=== PATIENT | female | born 1930 | race Caucasian/White ===

== ENCOUNTER 2018-05-29 20:57 | Emergency (ER) | payer MEDICARE ==
[~2018-05-29] VITALS: Ht 165.1 cm; Wt 59.1 kg
[~2018-05-29 20:57] MED LIST: AMLO5TAB PO; ASPI-611 PO; CRAN200C PO; DEXT15DR7 EACHEYE; DOCU-28 PO; DOCU250C4 PO; HYDR-4383 PO; IBUP-1985 PO; MULT-933 PO; [UNRECOGNIZED DRUG - OTHER] PO
[2018-05-29 21:07] VITALS: BP 151/79
--- NOTE | 2018-05-29 21:17 | NUR ---
Daughter, Heidy Hester reports she is pt's POA and wanted to leave her number in case of emergency
--- NOTE | 2018-05-29 21:27 | NUR ---
Endorsed to ERP patient assessment.
[2018-05-29 21:40] LABS: BASOPHILS # (AUTO) 0.1 X10'3 (0-0.2); BASOPHILS % (AUTO) 1.1 % (0-1); EOSINOPHILS # (AUTO) 0.1 X10'3 (0-0.9); EOSINOPHILS % (AUTO) 1.6 % (0-6); HEMATOCRIT 34.7 % (35.0-45.0); HEMOGLOBIN 11.8 g/dl (12.0-16.0); LYMPHOCYTES # (AUTO) 1.5 X10'3 (1.1-4.8); LYMPHOCYTES % (AUTO) 28.1 % (21-51); MEAN CORPUSCULAR HEMOGLOBIN 32.1 PG (27.0-31.0); MEAN CORPUSCULAR HGB CONC 34.1 g/dL (33.0-36.5); MEAN CORPUSCULAR VOLUME 94.2 FL (78-98); MEAN PLATELET VOLUME 6.9 FL (7.4-10.4); MONOCYTES # (AUTO) 0.6 X10'3 (0-0.9); MONOCYTES % (AUTO) 10.7 % (2-12); NEUTROPHILS # (AUTO) 3.1 X10'3 (1.8-7.7); NEUTROPHILS % (AUTO) 58.5 % (42-75); PLATELET COUNT 332 X10'3 (140-440); RED BLOOD COUNT 3.68 X10'6 (4.20-5.60); RED CELL DISTRIBUTION WIDTH 13.9 % (11.5-14.5); WHITE BLOOD COUNT 5.3 X10'3 (4.5-11.0)
--- NOTE | 2018-05-29 21:41 | NUR ---
PT DESCRIBES HER CHEST PAIN PRESSURE IN THE CHEST AND AT TIMES FELT LIKE IT WAS IN HER THROAT. DENIES LIGHTHEADEDNESS OR DIZZINESS
[2018-05-29 21:48] LABS: ALANINE AMINOTRANSFERASE 23 U/L (12-78); ALBUMIN 3.2 G/DL (3.4-5.0); ALBUMIN/GLOBULIN RATIO 1.3 (1.1-1.5); ALKALINE PHOSPHATASE 58 IU/L (46-116); ANION GAP 5 (8-16); ASPARTATE AMINO TRANSFERASE 17 U/L (10-37); BILIRUBIN,TOTAL 0.3 MG/DL (0.1-1.0); BLOOD UREA NITROGEN 26 MG/DL (7-18); BUN/CREATININE RATIO 27.4 (6.6-38.0); CALCIUM 8.8 MG/DL (8.5-10.1); CHLORIDE 107 MMOL/L (99-107); CREATININE 0.95 MG/DL (0.40-0.90); GLUCOSE 90 MG/DL (70-104); SODIUM 140 MMOL/L (135-145); TOTAL CARBON DIOXIDE 28.3 MMOL/L (24-32); TOTAL PROTEIN 5.7 G/DL (6.4-8.2); eGFR 56 ML/MIN
[2018-05-29 21:52] LABS: TROPONIN I 0.04 NG/ML (0.0-0.05)
--- NOTE | 2018-05-29 22:27 | NUR ---
Assisted to [facility], voided, kylah-care given, brief applied
== END 2018-05-29 23:52 | disposition home or self-care (01) ==
LOC: ER 20:58
DX: R07.89 Other chest pain (principal); I10 Essential (primary) hypertension; Z86.73 Personal history of transient ischemic attack (TIA), and cerebral infarction without residual deficits; Z90.49 Acquired absence of other specified parts of digestive tract; Z60.2 Problems related to living alone; Z79.82 Long term (current) use of aspirin; Z79.899 Other long term (current) drug therapy
CPT/HCPCS: 36415; 71045; 80053; 84484; 85025; 93005; 99284

== ENCOUNTER 2018-10-05 16:31 | Emergency (ER) | payer MEDICARE ==
[~2018-10-05] VITALS: Ht 170.2 cm; Wt 70.5 kg
[2018-10-05 18:28] VITALS: BP 174/83
--- NOTE | 2018-10-05 18:28 | NUR ---
up to bsc with assistance.
== END 2018-10-05 19:33 | disposition home or self-care (01) ==
LOC: ER 16:31
DX: S40.212A Abrasion of left shoulder, initial encounter (principal); S00.81XA Abrasion of other part of head, initial encounter; I10 Essential (primary) hypertension; Z86.73 Personal history of transient ischemic attack (TIA), and cerebral infarction without residual deficits; Z98.890 Other specified postprocedural states; Z88.2 Allergy status to sulfonamides; Z79.82 Long term (current) use of aspirin; Z79.899 Other long term (current) drug therapy; W18.49XA Other slipping, tripping and stumbling without falling, initial encounter; Y93.89 Activity, other specified; Y92.89 Other specified places as the place of occurrence of the external cause; Y99.9 Unspecified external cause status
CPT/HCPCS: 70450; 99284

== ENCOUNTER 2019-02-12 19:58 | Observation (INO) | payer MEDICARE ==
[~2019-02-12] VITALS: Ht 167.6 cm; Wt 59.0 kg
[~2019-02-12 19:58] MED LIST changes: +DOCU-329 PO; -DOCU250C4 PO
[2019-02-12 20:34] LABS: BASOPHILS % (AUTO) 0.7 % (0-1); EOSINOPHILS # (AUTO) 0.1 X10'3 (0-0.9); EOSINOPHILS % (AUTO) 1.8 % (0-6); HEMATOCRIT 36.7 % (35.0-45.0); HEMOGLOBIN 12.6 g/dl (12.0-16.0); LYMPHOCYTES # (AUTO) 1.3 X10'3 (1.1-4.8); LYMPHOCYTES % (AUTO) 25.5 % (21-51); MEAN CORPUSCULAR HEMOGLOBIN 32.9 PG (27.0-31.0); MEAN CORPUSCULAR HGB CONC 34.3 g/dL (33.0-36.5); MEAN CORPUSCULAR VOLUME 95.9 FL (78-98); MEAN PLATELET VOLUME 7.2 FL (7.4-10.4); MONOCYTES # (AUTO) 0.4 X10'3 (0-0.9); MONOCYTES % (AUTO) 8.4 % (2-12); NEUTROPHILS # (AUTO) 3.3 X10'3 (1.8-7.7); NEUTROPHILS % (AUTO) 63.6 % (42-75); PLATELET COUNT 336 X10'3 (140-440); RED BLOOD COUNT 3.83 X10'6 (4.20-5.60); RED CELL DISTRIBUTION WIDTH 14.3 % (11.5-14.5); WHITE BLOOD COUNT 5.2 X10'3 (4.5-11.0)
[2019-02-12 20:39] LABS: ALANINE AMINOTRANSFERASE 15 U/L (12-78); ALBUMIN 3.4 G/DL (3.4-5.0); ALBUMIN/GLOBULIN RATIO 1.1 (1.1-1.5); ALKALINE PHOSPHATASE 67 IU/L (46-116); ANION GAP 7 (8-16); ASPARTATE AMINO TRANSFERASE 19 U/L (10-37); BILIRUBIN,TOTAL 0.3 MG/DL (0.1-1.0); BLOOD UREA NITROGEN 21 MG/DL (7-18); BUN/CREATININE RATIO 18.6 (6.6-38.0); CALCIUM 8.5 MG/DL (8.5-10.1); CHLORIDE 105 MMOL/L (99-107); CREATININE 1.13 MG/DL (0.40-0.90); GLUCOSE 114 MG/DL (70-104); POTASSIUM 3.8 MMOL/L (3.5-5.1); SODIUM 139 MMOL/L (135-145); TOTAL CARBON DIOXIDE 27.3 MMOL/L (24-32); TOTAL PROTEIN 6.4 G/DL (6.4-8.2); eGFR 46 ML/MIN
[2019-02-12] MEDS ORDERED: LOSA25TA96 PO (20:56)
[2019-02-12] MEDS ORDERED: HYDR-4070 PO (20:56)
[2019-02-12] MEDS ORDERED: DONE5TAB7 PO (20:56)
[2019-02-12] MEDS ORDERED: FERR324T PO (20:56)
[2019-02-12] MEDS ORDERED: POTA10TA19 PO (20:56)
[2019-02-12] MEDS ORDERED: FURO-150 PO (20:56)
[2019-02-12] MEDS ORDERED: IBUP-1984 PO (20:56)
[2019-02-12] MEDS ORDERED: LACTC PO (21:00)
[2019-02-12] MEDS ORDERED: ondansetron/PF 4mg/2ml inj IV PRN ×2 (22:05→23:40)
[2019-02-12] MEDS ORDERED: acetaminophen 325mg tablet PO PRN ×2 (22:05→23:40)
[2019-02-12] MEDS ORDERED: magnesium hydroxide 30ml (MOM) UD suspension PO PRN ×2 (22:05→23:40)
[2019-02-12] MEDS ORDERED: nitroGLYCERIN 0.4mg SUBLingual tab SL PRN (22:05)
[2019-02-12] MEDS ORDERED: mag hydrox/Alum hydrox/simeth 30ml oral suspension PO PRN ×2 (22:05→23:40)
[2019-02-12] MEDS ORDERED: morphine 2 MG/ML inj. syringe IV PRN ×4 (22:05→23:40)
[2019-02-12] MEDS ORDERED: docusate sod 250mg capsule PO PRN (22:10)
--- NOTE | 2019-02-12 22:29 | NUR ---
NURSING HYDRODYNAMICIST AT BEDSIDE TO SPEAK WITH PATIENT. SHE IS WANTING TO LEAVE AMA BUT IS CONFUSED. SHE BELIEVES SHE HAS BEEN HERE "ALL DAY AND NIGHT" WHEN IN REALITY SHE HAS ONLY BEEN HERE A LITTLE OVER 2 HRS. SHE IS UPDATED ON PLAN OF CARE AND AGREES TO STAY AT THIS TIME. SHE IS CURRENTLY AWAITING A ROOM UPSTAIRS.
--- NOTE | 2019-02-12 22:45 | NUR ---
Patient in room ED 8. I have received report from JORI BLAKE IN THE ER and had the opportunity to ask questions and will assume patient care upon arrival to the floor. Addendum: 02/12/19 at 2309 by Nataliia Haynes RN Amended: Links added.
--- NOTE | 2019-02-12 22:55 | NUR ---
recieved pt from the Er on a gurney with a walker ambulated from the galicia to the bed with one person assist. vitals taken and MRSA swab done.
--- NOTE | 2019-02-12 23:00 | NUR ---
lab in to draw 3 hour troponin and then MRSA swab done and sent done with lab.
--- NOTE | 2019-02-12 23:29 | NUR ---
Dr Durant in with the pt at this time.
[2019-02-13] VITALS: BP 153/79
--- NOTE | 2019-02-13 00:35 | NUR ---
DARTING ON PT COMPLETED
--- NOTE | 2019-02-13 01:29 | NUR ---
AMBULATED PT WITH WALKER AND ASSIST TO [facility]. VOID AND TOLERATED WELL.
[2019-02-13] MEDS ORDERED: HYDROcodone/acetaminophen 5mg/325mg tablet PO PRN (02:00)
--- NOTE | 2019-02-13 02:21 | NUR ---
pt resting eyes closed without s&s of distress at this time.
--- NOTE | 2019-02-13 02:35 | NUR ---
troponin drawn and taken down to the lab to run.
--- NOTE | 2019-02-13 04:40 | NUR ---
pt up ambulated with walker and [employer] to BR[facility] at this time.
--- NOTE | 2019-02-13 06:12 | NUR ---
Problems reprioritized. Patient report given, questions answered & plan of care reviewed with Lily Zamora. Addendum: 02/13/19 at 0613 by Nataliia Haynes RN Amended: Links added.
--- NOTE | 2019-02-13 06:34 | NUR ---
Patient in room NEW 348. I have received report from Nataliia BLAKE and had the opportunity to ask questions and assume patient care.
[2019-02-13 07:00] VITALS: BP 180/80
[2019-02-13] MEDS ORDERED: lactobacillus rhamnosus 10,000 MMU CELLS/CAPSULE PO SCH (08:00)
[2019-02-13] MEDS ORDERED: hyDRALAzine 10mg tablet PO SCH (08:00)
[2019-02-13] MEDS ORDERED: losartan 25mg tablet PO SCH (08:00)
[2019-02-13] MEDS ORDERED: ibuprofen tablet 400 MG TABLET PO PRN (08:00)
[2019-02-13] MEDS ORDERED: non-formulary drug (Aspirin (Aspir 81) 1 TAB) PO SCH (08:00)
[2019-02-13] MEDS ORDERED: potassium Cl 20 mEq SR tablet PO SCH (08:00)
[2019-02-13] MEDS ORDERED: polyvinyl alcohol ophthalmic drops 15ml bottle EACHEYE SCH (08:00)
[2019-02-13] MEDS ORDERED: furosemide 20MG tablet PO SCH (08:00)
[2019-02-13] MEDS ORDERED: CRANBERRY EXTRACT 250 MG PO SCH (08:00)
[2019-02-13] MEDS ORDERED: aspirin 81mg tablet.DR PO SCH (08:00)
[2019-02-13] MEDS ORDERED: multivitamins, therapeutics tablet PO SCH (08:00)
[2019-02-13] MEDS ORDERED: ferrous gluconate 324mg tablet PO SCH (08:30)
[2019-02-13 09:30] VITALS: BP 152/72
--- NOTE | 2019-02-13 10:33 | NUR ---
Patient wanted to go home today syed, she expressed worry about going back immediately. Dr. Bernal notified about this. He said he would put an order in
--- NOTE | 2019-02-13 11:20 | NUR ---
Discharge instructions given to patient, patient verbalized understanding of all instructions made. Peripheral IV catheter removed, tip intact. Instructed patient to ensure she has all her belongings with her before leaving. Per Forensics Team Director Danielle, [employer] [employer] will fiber picker the patient for transportation to [facility] at around 12 noon.
[2019-02-13] MEDS ORDERED: donepezil 5mg tablet PO SCH (21:00)
== END 2019-02-13 11:55 ==
LOC: ER 19:59 → ED HOLD 22:03 → EDBEDREQ 22:34 → SUR 3N 23:16
PROVIDERS: ADMIT Internal Medicine; ATTEND Hospitalist
DX: R07.89 Other chest pain (principal); I24.9 Acute ischemic heart disease, unspecified; E78.00 Pure hypercholesterolemia, unspecified; E86.0 Dehydration; F03.90 Unspecified dementia, unspecified severity, without behavioral disturbance, psychotic disturbance, mood disturbance, and anxiety; I12.9 Hypertensive chronic kidney disease with stage 1 through stage 4 chronic kidney disease, or unspecified chronic kidney disease; N18.3 Chronic kidney disease, stage 3 (moderate); G89.29 Other chronic pain; Z86.73 Personal history of transient ischemic attack (TIA), and cerebral infarction without residual deficits; Z79.82 Long term (current) use of aspirin; Z79.899 Other long term (current) drug therapy; Z88.2 Allergy status to sulfonamides
CPT/HCPCS: 36415; 71045; 80053; 83880; 84484; 85025; 87081; 93005; 99284; G0378

== ENCOUNTER 2019-04-02 06:03 | Emergency (ER) | payer MEDICARE ==
[~2019-04-02] VITALS: Ht 167.6 cm; Wt 63.0 kg
[~2019-04-02 06:03] MED LIST changes: -AMLO5TAB PO; -DOCU-28 PO; +DONE5TAB7 PO; +FERR324T PO; +FURO-150 PO; +HYDR-4070 PO; +IBUP-1984 PO; -IBUP-1985 PO; +LACTC PO; +LOSA25TA96 PO; +POTA10TA19 PO
[2019-04-02 08:07] VITALS: BP 175/94
== END 2019-04-02 09:04 | disposition home or self-care (01) ==
LOC: ER 06:06
DX: G89.29 Other chronic pain (principal); M25.512 Pain in left shoulder; F03.90 Unspecified dementia, unspecified severity, without behavioral disturbance, psychotic disturbance, mood disturbance, and anxiety; E78.00 Pure hypercholesterolemia, unspecified; I10 Essential (primary) hypertension; Z86.73 Personal history of transient ischemic attack (TIA), and cerebral infarction without residual deficits; Z98.890 Other specified postprocedural states; Z88.2 Allergy status to sulfonamides; Z79.82 Long term (current) use of aspirin; Z79.899 Other long term (current) drug therapy
CPT/HCPCS: 73030; 99284

== ENCOUNTER 2019-04-16 20:49 | Emergency (ER) | payer MEDICARE ==
[~2019-04-16] VITALS: Ht 167.6 cm; Wt 61.0 kg
[2019-04-16 21:43] LABS: BASOPHILS # (AUTO) 0.1 X10'3 (0-0.2); EOSINOPHILS % (AUTO) 0.3 % (0-6); HEMATOCRIT 37.1 % (35.0-45.0); HEMOGLOBIN 12.9 g/dl (12.0-16.0); LYMPHOCYTES # (AUTO) 0.9 X10'3 (1.1-4.8); LYMPHOCYTES % (AUTO) 13.1 % (21-51); MEAN CORPUSCULAR HEMOGLOBIN 33.2 PG (27.0-31.0); MEAN CORPUSCULAR HGB CONC 34.6 g/dL (33.0-36.5); MEAN CORPUSCULAR VOLUME 95.7 FL (78-98); MEAN PLATELET VOLUME 7.3 FL (7.4-10.4); MONOCYTES # (AUTO) 0.5 X10'3 (0-0.9); MONOCYTES % (AUTO) 7.4 % (2-12); NEUTROPHILS # (AUTO) 5.5 X10'3 (1.8-7.7); NEUTROPHILS % (AUTO) 78.2 % (42-75); PLATELET COUNT 364 X10'3 (140-440); RED BLOOD COUNT 3.88 X10'6 (4.20-5.60); RED CELL DISTRIBUTION WIDTH 14.6 % (11.5-14.5); WHITE BLOOD COUNT 7.1 X10'3 (4.5-11.0)
[2019-04-16 21:50] LABS: ALANINE AMINOTRANSFERASE 27 U/L (12-78); ALBUMIN 3.6 G/DL (3.4-5.0); ALBUMIN/GLOBULIN RATIO 1.2 (1.1-1.5); ALKALINE PHOSPHATASE 64 IU/L (46-116); ANION GAP 4 (8-16); ASPARTATE AMINO TRANSFERASE 19 U/L (10-37); BILIRUBIN,TOTAL 0.2 MG/DL (0.1-1.0); BLOOD UREA NITROGEN 22 MG/DL (7-18); BUN/CREATININE RATIO 22.2 (6.6-38.0); CALCIUM 8.9 MG/DL (8.5-10.1); CHLORIDE 108 MMOL/L (99-107); CREATININE 0.99 MG/DL (0.40-0.90); GLUCOSE 110 MG/DL (70-104); POTASSIUM 4.3 MMOL/L (3.5-5.1); SODIUM 142 MMOL/L (135-145); TOTAL CARBON DIOXIDE 29.9 MMOL/L (24-32); TOTAL PROTEIN 6.5 G/DL (6.4-8.2); eGFR 53 ML/MIN
[2019-04-16 22:10] VITALS: BP 159/86
== END 2019-04-16 23:45 | disposition home or self-care (01) ==
LOC: ER 20:50
DX: R07.89 Other chest pain (principal); F03.90 Unspecified dementia, unspecified severity, without behavioral disturbance, psychotic disturbance, mood disturbance, and anxiety; E78.00 Pure hypercholesterolemia, unspecified; I10 Essential (primary) hypertension; Z98.890 Other specified postprocedural states; Z60.2 Problems related to living alone; Z86.73 Personal history of transient ischemic attack (TIA), and cerebral infarction without residual deficits; Z79.82 Long term (current) use of aspirin; Z79.899 Other long term (current) drug therapy
CPT/HCPCS: 36415; 71045; 80053; 84484; 85025; 93005; 99284